=== PATIENT | female | born 1965 | race Caucasian/White ===

== ENCOUNTER 2016-07-20 13:50 | Emergency (ER) | payer BC ==
[2016-07-20 13:59] VITALS: RESP 18
[2016-07-20] MEDS ORDERED: IPRATROPIUM-ALBUTEROL 3 ML NEB INHALATION STA (14:41)
--- NOTE | 2016-07-20 14:46 | ED ---
General Adult HPI - General Chief complaint: Chest Pain Stated complaint: upper body pain/cough Time Seen by Provider: 07/20/16 14:31 Source: patient, RN notes reviewed, old records reviewed Mode of arrival: ambulatory Limitations: no limitations - History of Present Illness Initial comments: Chief complaint history of present illness this is a 51-year-old female reports she's had discomfort to the left side of her rib cage since March. The patient is here after a fall and x-ray was done and was negative she reports 4 days later she had another fall she thinks she may cracked ribs then but did not have any follow-up. This morning when she awakened she took a deep breath felt the crack in her sternum and recurrent pain to the left lateral chest wall. She also is a smoker with COPD requesting an updraft. Otherwise no direct injury. - Related Data Home Medications Medication Instructions Recorded Confirmed DULoxetine HCL [Cymbalta] 60 mg PO DAILY 07/20/16 07/20/16 Dextroamphetamine/Amphetamine 10 mg PO DAILY 07/20/16 07/20/16 [Adderall] Diazepam [Valium] 10 mg PO DAILY 07/20/16 07/20/16 Gabapentin 800 mg PO TID 07/20/16 07/20/16 Gluc/Hiro-MSM#1/C/Yasir/Chris/Bor 1 tab PO DAILY 07/20/16 07/20/16 [Glucosamine-Chondroitin Tablet] HYDROcodone/APAP 10-325MG [[place] 1 tab PO TID PRN 07/20/16 07/20/16 10-325] Pnv with Ca,No.72/Iron/FA 1 tab PO DAILY 07/20/16 07/20/16 [ Plus Tablet] Previous Rx's Medication Instructions Recorded Azithromycin [Zithromax Z-pack] 250 mg PO DIRECTED #6 tab 07/20/16 Hydrocodone/Acetaminophen [[place] 1 each PO Q6HR PRN #10 tab 07/20/16 5-325] Allergies Allergy/AdvReac Type Severity Reaction Status Date / Time NSAIDS (Non-Steroidal Allergy Unknown Verified 07/20/16 14:13 Anti-Inflamma Review of Systems ROS Statement: Those systems with pertinent positive or pertinent negative responses have been documented in the HPI. Review of systems. No visual acuity changes or headache she has chest discomfort to the anterior chest wall increases with palpation and breathing as well as lateral chest wall increases with palpation and breathing. States she also has a productive green brown phlegm. No GI/ problems no other neuro deficits or complaints. All systems were otherwise reviewed. Past medical problems significant for COPD, hypertension degenerative joint disease chronic back pain. Surgeries include cholecystectomy and partial hysterectomy and a bypass surgery for obesity. The patient's family history father had prostate cancer. Patient states that she needs to take nonsteroidals has taken with food. Patient is a smoker encouraged strongly encouraged to stop. Denies alcohol use other than socially on occasion. ROS Other: All systems not noted in ROS Statement are negative. Past Medical History Past Medical History: COPD, Hypertension Additional Past Medical History / Comment(s): DJD, chronic back pain History of Any Multi-Drug Resistant Organisms: None Reported Additional Past Surgical History / Comment(s): gallbladder, Gastric bypass, partial hysterectomy Past Psychological History: Anxiety, Depression Smoking Status: Current every day smoker Past Alcohol Use History: None Reported Past Drug Use History: None Reported General Exam - General Exam Comments Initial Comments: General: The patient is awake and alert, complains of short of breath and productive cough. Requesting an updraft. Complains of green-brown productive phlegm. Discomfort to the lateral chest wall in the sternal area. Increases with twisting turning deep breathing and coughing. Vital signs show temperature 99.0 pulse 91 respiratory rate 18 pulse ox 94% room air blood pressure 171 of 1: 15. This be rechecked with the patient is made more comfortable. Eye: Pupils are equal, round and reactive to light, extra-ocular movements are intact ; there is normal conjunctiva bilaterally. No signs of icterus. Ears, nose, mouth and throat: There are moist mucous membranes and no oral lesions. Patient is edentulous Neck: The neck is supple, there is no tenderness , no anterior cervical lymphadenopathy. No stiff neck. Cardiovascular: There is a regular rate and rhythm. No murmur, rub or gallop is appreciated. Respiratory: Lungs are clear to auscultation, respirations are non-labored, breath sounds are equal. No wheezes, stridor, rales, or rhonchi. No wheezing or rales. No evidence of any rash. Early shingles discussed. Complains discomfort with deep breathing and coughing. Gastrointestinal: Soft, non-distended, non-tender abdomen without masses or organomegaly noted. There is no rebound or guarding present. No CVA tenderness. Bowel sounds are unremarkable. Back: There is no tenderness to palpation in the midline. There is no obvious deformity. No rashes noted. Musculoskeletal: Normal ROM, no tenderness, There is no pedal edema. There is no calf tenderness or swelling. Sensation intact. Neurological: No evidence of a neuro deficits. Cranial nerves II through XII are intact. Skin: Skin is warm and dry and no rashes or lesions are noted. Early shingles discussed. Psychiatric: Cooperative, appropriate mood & affect, strongly advised to stop smoking. Limitations: no limitations Course Vital Signs 07/20/16 07/20/16 07/20/16 13:55 15:16 15:24 Temperature 99.0 F Pulse Rate 91 68 68 Respiratory 18 Rate Blood Pressure 171/115 O2 Sat by Pulse 94 L Oximetry Medical Decision Making - Medical Decision Making Medical decision-making. The patient had x-rays of the ribs and chest x-ray. Reviewed by radiologist significant findings include vertebral plasty changes are present on the prior exam at the upper lumbar spine with compression deformity. No displaced rib fractures. Old left-sided rib fracture appears healed at the fourth rib laterally. Fifth rib also shows a contour abnormality suggesting a chronic fracture. Bone mineralization is low which may limit sensitivity especially of the lower rib levels. Rib fractures noted at what is believed to be the ninth rib laterally. Impression; ninth rib fracture appears acute. May be subacute rib fractures. There are some limitations at the lower left levels, bone scan may be of benefit as indicated. As read by Dr. Nava Patient will be advised to splint the area of pain when she takes a deep breath or coughs. Advised to take her home pain medications of [place]. Advised follow- up with family physician to report fever. The patient will be placed on a Z- [place] because of the complaint of discolored phlegm. Disposition Clinical Impression: Rib fracture, Bronchitis Disposition: HOME SELF-CARE Condition: Fair Instructions: Costochondritis (ED), Rib Fracture (ED), COPD (Chronic Obstructive Pulmonary Disease) (ED), Chronic Bronchitis (ED) Additional Instructions: Use pain medication provided by her family physician stop smoking use updraft machine at home and Z-Tremaine as directed Prescriptions: Azithromycin [Zithromax Z-pack] 250 mg PO DIRECTED #6 tab Hydrocodone/Acetaminophen [[place] 5-325] 1 each PO Q6HR PRN #10 tab PRN Reason: Pain Time of Disposition: 15:59
[2016-07-20] MEDS ORDERED: oxyCODONE-APAP 5-325MG 1 EACH TAB PO STA (15:16)
--- NOTE | 2016-07-20 15:52 | XR ---
PA chest x-ray with left RIBS HISTORY: Left-sided rib pain, fall, cough Frontal view of the chest and 4 views of the left ribs correlated to prior chest x-ray and RIBS dated 11 March 2016 Chest x-ray shows stable appearance. There is no pneumonia, pneumothorax, or pleural effusion. Cardia c mediastinal silhouette, pulmonary vascularity and renny are stable. There is a spinal curvature. Oma gical clips present in the right upper quadrant. Vertebroplasty changes are present as on prior exam at the upper lumbar spine with compression deform ity. No displaced rib fracture. Old left-sided rib fracture appears healed at the fourth rib laterall y. Fifth rib also shows a contour abnormality suggesting a chronic fracture. Bone mineralization is l ow which may limit sensitivity especially at the lower rib levels. Rib fracture noted at what is believed to be the ninth rib laterally. IMPRESSION: Ninth rib fracture appears acute. There may be subacute rib fractures. There are some arenas itations at the lower levels, bone scan may be of benefit as indicated.
[2016-07-20] MEDS ORDERED: methylPREDNISolone SOD SUCCI 125 MG/2 ML VIAL IM STA (16:13)
[2016-07-20 16:17] VITALS: BP 167/102; PULSE 84; TEMP 98.1
[2016-07-20] MEDS ORDERED: ONDANSETRON 4 MG ODT STARTER PACK 2 TAB BTL PO STA (16:18)
== END 2016-07-20 16:26 | disposition home or self-care (01) ==
LOC: EC 13:50
DX: S22.32XA Fracture of one rib, left side, initial encounter for closed fracture (principal); J40 Bronchitis, not specified as acute or chronic; W19.XXXA Unspecified fall, initial encounter; J44.9 Chronic obstructive pulmonary disease, unspecified; F17.200 Nicotine dependence, unspecified, uncomplicated; M19.90 Unspecified osteoarthritis, unspecified site; F32.9 Major depressive disorder, single episode, unspecified; F41.9 Anxiety disorder, unspecified; Z79.899 Other long term (current) drug therapy; Z88.6 Allergy status to analgesic agent
CPT/HCPCS: 94640; 71101; 99285; 96372; J2930; S0119

== ENCOUNTER → 2016-07-20 | Outpatient (CLI) | payer BC ==
--- NOTE | 2016-07-20 15:58 | BD ---
EXAMINATION TYPE: MG DEXA axial skeleton. DATE OF EXAM: 07/20/2016 1:41 PM COMPARISON: 07.19.2002 CLINICAL HISTORY: M52.5 LUMBAGO Height: 64 Weight: 191 FRAX RISK QUESTIONS: Alcohol (3 or more units per day): NO Family History (Parent hip fracture): UNKNOWN Glucocorticoids (More than 3mos): YES (Ex: prednisone, prednisolone, methylprednisolone, dexamethasone, and hydrocortisone). History of Fracture in Adulthood: YES Secondary Osteoporosis: 1. Type 1 Diabetes: NO 2. Hyperthyroidism: NO 3. Menopause before 45: NO 4. Malnutrition: NOT SURE 5. Chronic liver disease: STATES NO Rheumatoid Arthritis: NO Current Tobacco Use: YES RISK FACTORS HISTORY OF: Spine Fracture: LUMBAR X3 SITES When: AT VARIOUS AGES History of Wrist Fracture: RT WRIST WITH SURGICAL REPAIR When: 2016 Surgery to Spine KYPHOPLASTY LUMBAR When: 2013 Other Fractures since Age 48: YES, RIBS ALSO When: 2016 Family History of Osteoporosis: NONE KNOWN Smoke tobacco: YES, 1 1/2 PAC DAILY Drink Alcohol: SOCIAL Active: NOT REALLY, CANNOT BE Diet low in dairy products/other sources of calcium: YES A BIT LOW, NO MILK Postmenopausal woman: PT STATES SAYS NOT IN MENOPAUSE YET, HAD HYSTERECTOMY IN HER 40'S, PORTION O F OVARY STILL THERE Lost more than 2 inches in height since high school: YES Frequent falls: PT VERY UNSTEADY Poor Health: YES Adrenal Insufficiency: NO MEDICATIONS: Prednisone or other steroids: NEBULIZER AND INHALERS FOR COPD How Long: FOR A WHILE Additional Medications: BP MEDS, CYMBALTA, VALIUM PRN,BENADRYL, NORCO, NSAIDS, ZANAFLEX, Additional History: GASTRIC BYPASS, MULTIPLE FXS, SUFFERS IN PAIN, MULTIPLE AREAS, DEPRESSION, SPONTA NIOUS HYPOGLYECMIA, EXAM MEASUREMENTS: Bone mineral densitometry was performed using the [employer] System. LUMBAR FRACTURES, AND SURG Bone mineral density about the R hip (g/cm2): 0.715 Bone mineral density about the L hip (g/cm2): 0.708 T Score values are as follows: -----R Neck: -2.3 -----L Neck: -2.4 -----R Intertrochanter: -3.2 -----L Intertrochanter: -2.9 Bone mineral density has: Decreased -23.2% since study of: 07.19.2002 FRAX%'S: FOR MAJOR OSTEOPOROTIC FX: 23.7%.....FOR HIP FX: 8.1% PROBABILITY OF FX IN 10 Y RS TIME IMPRESSION: Osteoporosis (T Score less than -2.5) as noted by T Score values at the There is increased fracture risk and therapy is usually indicated based on age. Re-Screen 1-2 years. FOR BOTH HIPS NOTE: T-SCORE=SD OF THE YOUNG ADULT MEAN.
== END | disposition home or self-care (01) ==
LOC: RADBDWWP 13:00
PROVIDERS: ATTEND Physician Assistant Medical
DX: M81.0 Age-related osteoporosis without current pathological fracture (principal)
CPT/HCPCS: 77080

== ENCOUNTER 2016-10-15 10:16 | Inpatient (IN) | payer BC ==
[2016-10-15] MEDS ORDERED: SODIUM CHLORIDE 0.9% 1,000 ML IV STA ×2 (10:27→10:32)
[2016-10-15] MEDS ORDERED: PANTOPRAZOLE 40 MG/10 ML VIAL IVP STA (10:29)
--- NOTE | 2016-10-15 10:45 | ED ---
Overdose HPI - General Stated Complaint: Overdose Time Seen by Provider: 10/15/16 10:16 Source: EMS, RN notes reviewed, old records reviewed Mode of arrival: EMS - History of Present Illness Initial Comments: Is a 51-year-old female with a history of narcotic abuse in the past who is brought in by EMS after being found unresponsive by her . She is lying on the floor just with her sure apparently the front door was cracked open. Patient was last seen able ably last evening. No reports of any trauma patient apparently does have access to morphine sulfate. History of back surgery and neurosurgery. Patient was found incontinent of urine and stool. She was given 2 mg of Narcan with some response. She is found lying on her left side is unknown how long she was here. No other physical signs of trauma. No other reported history available at this time. The patient was noted have a blood sugar in the 70s. MD Complaint: other - Related Data Home Medications Medication Instructions Recorded Confirmed Diazepam [Valium] 10 mg PO Q12H PRN 07/20/16 10/15/16 Gabapentin 800 mg PO TID 07/20/16 10/15/16 Pnv with Ca,No.72/Iron/FA 1 tab PO DAILY 07/20/16 10/15/16 [ Plus Tablet] Albuterol Sulfate [Proventil Hfa] 2 puff INHALATION RT-Q6H PRN 10/15/16 10/15/16 Dextroamphetamine/Amphetamine 20 mg PO QAM 10/15/16 10/15/16 [Adderall Xr] Metoprolol Tartrate [Lopressor] 100 mg PO BID 10/15/16 10/15/16 tiZANidine HCL [tiZANidine HCL] 4 mg PO TID 10/15/16 10/15/16 Allergies Allergy/AdvReac Type Severity Reaction Status Date / Time NSAIDS (Non-Steroidal Allergy Unknown Verified 07/20/16 14:13 Anti-Inflamma Review of Systems ROS Statement: Those systems with pertinent positive or pertinent negative responses have been documented in the HPI. ROS Other: All systems not noted in ROS Statement are negative. Limitations: ROS unobtainable due to patients medical condition Past Medical History Past Medical History: COPD, Hypertension Additional Past Medical History / Comment(s): DJD, chronic back pain History of Any Multi-Drug Resistant Organisms: None Reported Additional Past Surgical History / Comment(s): gallbladder, Gastric bypass, partial hysterectomy Past Psychological History: Anxiety, Depression Smoking Status: Current every day smoker Past Alcohol Use History: None Reported Past Drug Use History: None Reported General Exam - General Exam Comments Initial Comments: Is a well-developed well-nourished lethargic female General appearance: lethargic Head exam: Present: atraumatic, normocephalic, normal inspection Eye exam: Present: normal appearance, PERRL, EOMI. Absent: scleral icterus, conjunctival injection, periorbital swelling ENT exam: Present: mucous membranes dry Neck exam: Present: normal inspection. Absent: tenderness, meningismus, lymphadenopathy Respiratory exam: Present: decreased breath sounds. Absent: respiratory distress, wheezes, rales, rhonchi, stridor Cardiovascular Exam: Present: regular rate, normal rhythm, normal heart sounds. Absent: systolic murmur, diastolic murmur, rubs, gallop, clicks GI/Abdominal exam: Present: soft, normal bowel sounds. Absent: distended, tenderness, guarding, rebound, rigid Rectal exam: Present: heme (+) stool Speculum exam: Present: normal speculum exam Extremities exam: Present: full ROM, normal capillary refill, other (There is evidence of a stage I pressure sore on the left hip and pelvis area also the left shoulder.). Absent: tenderness, pedal edema, joint swelling, calf tenderness Back exam: Present: normal inspection Neurological exam: Present: alert, altered, CN II-XII intact Psychiatric exam: Present: flat affect Skin exam: Present: dry, intact, other (Cool to touch dusky). Absent: rash Course Vital Signs 10/15/16 10/15/16 10/15/16 10:30 11:00 12:34 Temperature 92.8 F L Pulse Rate 104 H 97 100 Respiratory 32 H 32 H 28 H Rate Blood Pressure 165/109 151/109 150/65 O2 Sat by Pulse 100 100 99 Oximetry 10/15/16 13:04 Temperature Pulse Rate 107 H Respiratory 28 H Rate Blood Pressure 140/81 O2 Sat by Pulse 98 Oximetry - Reevaluation(s) Reevaluation #1: 10/15/16 10:44 Stephens catheter was placed. Dark urine. Reevaluation #2: 10/15/16 13:50 I did repeat the rectal examination this time it is heme positive per lab. I did a long discussion with the patient's and relatives concerning the findings thus far patient does appear to be in regular lysis with jaundice and metabolic encephalopathy due to high ammonia level. Addition to GI bleeding. Patient will be admitted. Reevaluation #3: 10/15/16 15:05 The patient was noted to be more to Neck and did require intubation respiratory it was almost 60 breaths a minute. Reevaluation #4: 10/15/16 15:25 Patient's does state the patient was drinking up to a case of beer a day episode about a month ago. It is unclear whether she had any more alcohol since that time. He states she has an addictive personality and a thinnish he tries she seemed to get addicted to which includes medications. Procedures - Intubation Sedative: Propofol Mg Given: 140 Laryngoscope: Hamilton Size: 3 ET Tube Size: 7.5 ET Tube Uncuffed: No Tube Secured Depth (cm): 19 Tube Secured Location: lips Tube Placement Confirmation: visualized tube passing through cords, confirmation by capnometry Patient Tolerated Procedure: well Intubation Complications: none (ET tube did data be repositioned once) Medical Decision Making - Lab Data Result diagrams: 10/15/16 10:38 10/15/16 10:38 Lab Results 10/15/16 10/15/16 10/15/16 Range/Units 10:30 10:38 10:38 WBC 12.4 H (3.8-10.6) k/uL RBC 5.36 (3.80-5.40) m/uL Hgb 17.1 H (11.4-16.0) gm/dL Hct 53.2 H (34.0-46.0) % MCV 99.2 (80.0-100.0) fL MCH 31.8 (25.0-35.0) pg MCHC 32.1 (31.0-37.0) g/dL RDW 15.6 H (11.5-15.5) % Plt Count 128 L (150-450) k/uL Neutrophils % 86 % Lymphocytes % 3 % Monocytes % 9 % Eosinophils % 0 % Basophils % 1 % Neutrophils # 10.6 H (1.3-7.7) k/uL Lymphocytes # 0.3 L (1.0-4.8) k/uL Monocytes # 1.1 H (0-1.0) k/uL Eosinophils # 0.0 (0-0.7) k/uL Basophils # 0.1 (0-0.2) k/uL Macrocytosis Slight PT (9.0-12.0) sec INR (<1.1) APTT (22.0-30.0) sec Sodium (137-145) mmol/L Potassium (3.5-5.1) mmol/L Chloride (98-107) mmol/L Carbon Dioxide (22-30) mmol/L Anion Gap mmol/L BUN (7-17) mg/dL Creatinine (0.52-1.04) mg/dL Est GFR (MDRD) Af Amer (>60 ml/min/1.73 sqM) Est GFR (MDRD) Non-Af (>60 ml/min/1.73 sqM) Glucose (74-99) mg/dL Plasma Lactic Acid Bronson (0.7-2.0) mmol/L Calcium (8.4-10.2) mg/dL Magnesium (1.6-2.3) mg/dL Total Bilirubin (0.2-1.3) mg/dL AST (14-36) U/L ALT (9-52) U/L Alkaline Phosphatase (38-126) U/L Ammonia (<30) umol/L Total Creatine Kinase 4763 H (30-135) U/L CK-MB (CK-2) 30.8 H* (0.0-2.4) ng/mL CK-MB (CK-2) Rel Index Troponin I 0.037 H* (0.000-0.034) ng/mL Total Protein (6.3-8.2) g/dL Albumin (3.5-5.0) g/dL Amylase (30-110) U/L Lipase (23-300) U/L Urine Color Urine Appearance (Clear) Urine pH (5.0-8.0) Ur Specific Hassell (1.001-1.035) Urine Protein (Negative) Urine Glucose (UA) (Negative) Urine Ketones (Negative) Urine Blood (Negative) Urine Nitrite (Negative) Urine Bilirubin (Negative) Urine Urobilinogen (<2.0) mg/dL Ur Leukocyte Esterase (Negative) Ur Squamous Epith Cells (0-4) /hpf Urine Bacteria (None) /hpf Urine Mucus (None) /hpf Stool Occult Blood Negative (Negative) Urine Opiates Screen (NotDetected) Ur Oxycodone Screen (NotDetected) Urine Methadone Screen (NotDetected) Ur Propoxyphene Screen (NotDetected) Ur Barbiturates Screen (NotDetected) U Tricyclic Antidepress (NotDetected) Ur Phencyclidine Scrn (NotDetected) Ur Amphetamines Screen (NotDetected) U Methamphetamines Scrn (NotDetected) U Benzodiazepines Scrn (NotDetected) Urine Cocaine Screen (NotDetected) U Marijuana (THC) Screen (NotDetected) Serum Alcohol mg/dL Blood Type Blood Type Confirm Blood Type Recheck Antibody Screen Spec Expiration Date 10/15/16 10/15/16 10/15/16 Range/Units 10:38 10:38 10:38 WBC (3.8-10.6) k/uL RBC (3.80-5.40) m/uL Hgb (11.4-16.0) gm/dL Hct (34.0-46.0) % MCV (80.0-100.0) fL MCH (25.0-35.0) pg MCHC (31.0-37.0) g/dL RDW (11.5-15.5) % Plt Count (150-450) k/uL Neutrophils % % Lymphocytes % % Monocytes % % Eosinophils % % Basophils % % Neutrophils # (1.3-7.7) k/uL Lymphocytes # (1.0-4.8) k/uL Monocytes # (0-1.0) k/uL Eosinophils # (0-0.7) k/uL Basophils # (0-0.2) k/uL Macrocytosis PT 16.8 H (9.0-12.0) sec INR 1.7 (<1.1) APTT 26.5 (22.0-30.0) sec Sodium 139 (137-145) mmol/L Potassium 4.7 (3.5-5.1) mmol/L Chloride 103 (98-107) mmol/L Carbon Dioxide 12 L (22-30) mmol/L Anion Gap 24 mmol/L BUN 94 H* (7-17) mg/dL Creatinine 2.71 H (0.52-1.04) mg/dL Est GFR (MDRD) Af Amer 22 (>60 ml/min/1.73 sqM) Est GFR (MDRD) Non-Af 18 (>60 ml/min/1.73 sqM) Glucose 174 H (74-99) mg/dL Plasma Lactic Acid Bronson 10.8 H* (0.7-2.0) mmol/L Calcium 8.6 (8.4-10.2) mg/dL Magnesium 3.2 H (1.6-2.3) mg/dL Total Bilirubin 3.5 H (0.2-1.3) mg/dL AST 1412 H (14-36) U/L ALT 483 H (9-52) U/L Alkaline Phosphatase 176 H (38-126) U/L Ammonia 158 H (<30) umol/L Total Creatine Kinase (30-135) U/L CK-MB (CK-2) (0.0-2.4) ng/mL CK-MB (CK-2) Rel Index Troponin I (0.000-0.034) ng/mL Total Protein 5.2 L (6.3-8.2) g/dL Albumin 2.3 L (3.5-5.0) g/dL Amylase 150 H (30-110) U/L Lipase 224 (23-300) U/L Urine Color Urine Appearance (Clear) Urine pH (5.0-8.0) Ur Specific Hassell (1.001-1.035) Urine Protein (Negative) Urine Glucose (UA) (Negative) Urine Ketones (Negative) Urine Blood (Negative) Urine Nitrite (Negative) Urine Bilirubin (Negative) Urine Urobilinogen (<2.0) mg/dL Ur Leukocyte Esterase (Negative) Ur Squamous Epith Cells (0-4) /hpf Urine Bacteria (None) /hpf Urine Mucus (None) /hpf Stool Occult Blood (Negative) Urine Opiates Screen (NotDetected) Ur Oxycodone Screen (NotDetected) Urine Methadone Screen (NotDetected) Ur Propoxyphene Screen (NotDetected) Ur Barbiturates Screen (NotDetected) U Tricyclic Antidepress (NotDetected) Ur Phencyclidine Scrn (NotDetected) Ur Amphetamines Screen (NotDetected) U Methamphetamines Scrn (NotDetected) U Benzodiazepines Scrn (NotDetected) Urine Cocaine Screen (NotDetected) U Marijuana (THC) Screen (NotDetected) Serum Alcohol <10 mg/dL Blood Type Blood Type Confirm Blood Type Recheck Antibody Screen Spec Expiration Date 10/15/16 10/15/16 10/15/16 Range/Units 10:38 10:47 11:37 WBC (3.8-10.6) k/uL RBC (3.80-5.40) m/uL Hgb (11.4-16.0) gm/dL Hct (34.0-46.0) % MCV (80.0-100.0) fL MCH (25.0-35.0) pg MCHC (31.0-37.0) g/dL RDW (11.5-15.5) % Plt Count (150-450) k/uL Neutrophils % % Lymphocytes % % Monocytes % % Eosinophils % % Basophils % % Neutrophils # (1.3-7.7) k/uL Lymphocytes # (1.0-4.8) k/uL Monocytes # (0-1.0) k/uL Eosinophils # (0-0.7) k/uL Basophils # (0-0.2) k/uL Macrocytosis PT (9.0-12.0) sec INR (<1.1) APTT (22.0-30.0) sec Sodium (137-145) mmol/L Potassium (3.5-5.1) mmol/L Chloride (98-107) mmol/L Carbon Dioxide (22-30) mmol/L Anion Gap mmol/L BUN (7-17) mg/dL Creatinine (0.52-1.04) mg/dL Est GFR (MDRD) Af Amer (>60 ml/min/1.73 sqM) Est GFR (MDRD) Non-Af (>60 ml/min/1.73 sqM) Glucose (74-99) mg/dL Plasma Lactic Acid Bronson (0.7-2.0) mmol/L Calcium (8.4-10.2) mg/dL Magnesium (1.6-2.3) mg/dL Total Bilirubin (0.2-1.3) mg/dL AST (14-36) U/L ALT (9-52) U/L Alkaline Phosphatase (38-126) U/L Ammonia (<30) umol/L Total Creatine Kinase (30-135) U/L CK-MB (CK-2) (0.0-2.4) ng/mL CK-MB (CK-2) Rel Index Troponin I (0.000-0.034) ng/mL Total Protein (6.3-8.2) g/dL Albumin (3.5-5.0) g/dL Amylase (30-110) U/L Lipase (23-300) U/L Urine Color Dark Brown Urine Appearance Cloudy H (Clear) Urine pH 5.5 (5.0-8.0) Ur Specific Hassell 1.015 (1.001-1.035) Urine Protein 1+ H (Negative) Urine Glucose (UA) Negative (Negative) Urine Ketones Negative (Negative) Urine Blood Small H (Negative) Urine Nitrite Negative (Negative) Urine Bilirubin Negative (Negative) Urine Urobilinogen 4.0 (<2.0) mg/dL Ur Leukocyte Esterase Small H (Negative) Ur Squamous Epith Cells 2 (0-4) /hpf Urine Bacteria Many H (None) /hpf Urine Mucus Few H (None) /hpf Stool Occult Blood Positive H (Negative) Urine Opiates Screen Detected H (NotDetected) Ur Oxycodone Screen Detected H (NotDetected) Urine Methadone Screen Not Detected (NotDetected) Ur Propoxyphene Screen Not Detected (NotDetected) Ur Barbiturates Screen Detected H (NotDetected) U Tricyclic Antidepress Not Detected (NotDetected) Ur Phencyclidine Scrn Not Detected (NotDetected) Ur Amphetamines Screen Detected H (NotDetected) U Methamphetamines Scrn Not Detected (NotDetected) U Benzodiazepines Scrn Detected H (NotDetected) Urine Cocaine Screen Not Detected (NotDetected) U Marijuana (THC) Screen Not Detected (NotDetected) Serum Alcohol mg/dL Blood Type A Positive Blood Type Confirm Blood Type Recheck CABO Indicated Antibody Screen NEGATIVE Spec Expiration Date 10/18/2016 - 233710/15/16 10/15/16 10/15/16 Range/Units 14:14 14:14 14:32 WBC (3.8-10.6) k/uL RBC (3.80-5.40) m/uL Hgb (11.4-16.0) gm/dL Hct (34.0-46.0) % MCV (80.0-100.0) fL MCH (25.0-35.0) pg MCHC (31.0-37.0) g/dL RDW (11.5-15.5) % Plt Count (150-450) k/uL Neutrophils % % Lymphocytes % % Monocytes % % Eosinophils % % Basophils % % Neutrophils # (1.3-7.7) k/uL Lymphocytes # (1.0-4.8) k/uL Monocytes # (0-1.0) k/uL Eosinophils # (0-0.7) k/uL Basophils # (0-0.2) k/uL Macrocytosis PT 17.2 H (9.0-12.0) sec INR 1.8 (<1.1) APTT 28.8 (22.0-30.0) sec Sodium (137-145) mmol/L Potassium (3.5-5.1) mmol/L Chloride (98-107) mmol/L Carbon Dioxide (22-30) mmol/L Anion Gap mmol/L BUN (7-17) mg/dL Creatinine (0.52-1.04) mg/dL Est GFR (MDRD) Af Amer (>60 ml/min/1.73 sqM) Est GFR (MDRD) Non-Af (>60 ml/min/1.73 sqM) Glucose (74-99) mg/dL Plasma Lactic Acid Bronson 5.1 H* (0.7-2.0) mmol/L Calcium (8.4-10.2) mg/dL Magnesium (1.6-2.3) mg/dL Total Bilirubin (0.2-1.3) mg/dL AST (14-36) U/L ALT (9-52) U/L Alkaline Phosphatase (38-126) U/L Ammonia (<30) umol/L Total Creatine Kinase (30-135) U/L CK-MB (CK-2) (0.0-2.4) ng/mL CK-MB (CK-2) Rel Index Troponin I (0.000-0.034) ng/mL Total Protein (6.3-8.2) g/dL Albumin (3.5-5.0) g/dL Amylase (30-110) U/L Lipase (23-300) U/L Urine Color Urine Appearance (Clear) Urine pH (5.0-8.0) Ur Specific Hassell (1.001-1.035) Urine Protein (Negative) Urine Glucose (UA) (Negative) Urine Ketones (Negative) Urine Blood (Negative) Urine Nitrite (Negative) Urine Bilirubin (Negative) Urine Urobilinogen (<2.0) mg/dL Ur Leukocyte Esterase (Negative) Ur Squamous Epith Cells (0-4) /hpf Urine Bacteria (None) /hpf Urine Mucus (None) /hpf Stool Occult Blood (Negative) Urine Opiates Screen (NotDetected) Ur Oxycodone Screen (NotDetected) Urine Methadone Screen (NotDetected) Ur Propoxyphene Screen (NotDetected) Ur Barbiturates Screen (NotDetected) U Tricyclic Antidepress (NotDetected) Ur Phencyclidine Scrn (NotDetected) Ur Amphetamines Screen (NotDetected) U Methamphetamines Scrn (NotDetected) U Benzodiazepines Scrn (NotDetected) Urine Cocaine Screen (NotDetected) U Marijuana (THC) Screen (NotDetected) Serum Alcohol mg/dL Blood Type Blood Type Confirm A Positive Blood Type Recheck Antibody Screen Spec Expiration Date - EKG Data -: EKG Interpreted by [place] EKG shows normal: sinus rhythm (Sinus tachycardia rate 103 ND interval 144 QRS duration 88 QT/QTC 370/495 possible left atrial enlargement nonspecific ST-T wave configuration.) - Radiology Data Radiology results: report reviewed (I did review the imaging and reports no acute findings patient did have to be x-rayed after intubation the initial x- ray showed right mainstem intubation after the ET tube was withdrawn it was in good position. CAT scans are negative for acute processes), image reviewed Critical Care Time Critical Care Time: Yes Critical Care Time: 65 minutes of critical care time which includes initial monitoring of the EMS run and discussed with paramedics history physical lab and x-rays evaluation CAT scans of the patient multiple reevaluation of the patient multiple discussions with the patient's and family members. This is not included intubation time. Discussion with the admitting physician. Documentation the above admission orders. Disposition Clinical Impression: Acute respiratory failure, Hepatic encephalopathy, GI bleed, Rhabdomyolysis, Sepsis, Drug overdose, Dehydration, Lactic acidosis Disposition: ADMITTED IP TO THIS HOSP Condition: Critical Referrals: Olga Cat MD [Primary Care Provider] - 1-2 days
[2016-10-15 11:10] LABS: ALT 483 U/L (9-52); Alcohol <10 mg/dL; Alkaline Phosphatase 176 U/L (38-126); Amylase 150 U/L (30-110); Anion Gap 24 mmol/L; Calcium 8.6 mg/dL (8.4-10.2); Carbon Dioxide 12 mmol/L (22-30); Chloride 103 mmol/L (98-107); Glucose 174 mg/dL (74-99); Magnesium 3.2 mg/dL (1.6-2.3); Potassium 4.7 mmol/L (3.5-5.1); Sodium 139 mmol/L (137-145); Total Bilirubin 3.5 mg/dL (0.2-1.3); Total Protein 5.2 g/dL (6.3-8.2)
[2016-10-15 11:14] LABS: INR 1.7 (<1.1); Partial Thromboplastin Time 26.5 sec (22.0-30.0); Prothrombin Time 16.8 sec (9.0-12.0)
[2016-10-15 11:19] LABS: Appearance,Urine Cloudy (Clear); Bacteria,Urine Many /hpf; Bilirubin,Urine Negative (Negative); Glucose,Urine (UA) Negative (Negative); Ketones,Urine Negative (Negative); Leukocyte Esterase,Urine Small (Negative); Mucus,Urine Few /hpf; Nitrite,Urine Negative (Negative); PH, Urine 5.5 (5.0-8.0); Particle Count 82274; Protein,Urine 1+ (Negative); Specific Gravity,Urine 1.015 (1.001-1.035); Squamous Epithelial Cell,Urine 2 /hpf (0-4); UA Billing (MACRO vs. MICRO) MICRO
[2016-10-15] MEDS ORDERED: SODIUM CHLORIDE 0.9% 2,000 ML IV ONE ×2 (11:23→13:36)
--- NOTE | 2016-10-15 11:25 | XR ---
EXAMINATION TYPE: XR chest 1V portable DATE OF EXAM: 10/15/2016 11:21 AM COMPARISON: 07/20/2016 HISTORY: Altered mental status TECHNIQUE: Single frontal view of the chest is obtained. FINDINGS: There is no focal air space opacity, pleural effusion, or pneumothorax seen. The cardiac silhouette size is within normal limits. The osseous structures are intact. Linear change right upp er lobe most typical scar or atelectasis. Rib deformities noted by previous rib series not as well se en on today's exam. IMPRESSION: No acute process.
[2016-10-15 11:27] LABS: Basophils # (A) 0.1 k/uL (0-0.2); Basophils % (A) 1 %; CH 32.6; CHCM 33.1; Eosinophils % (A) 0 %; HCT 53.2 % (34.0-46.0); HDW 2.51; HGB 17.1 gm/dL (11.4-16.0); Immature Gran Flag Marked; Luc # (Auto) 0.21; Luc % (Auto) 2; Lymphocytes # (A) 0.3 k/uL (1.0-4.8); Lymphocytes % (A) 3 %; MCH 31.8 pg (25.0-35.0); MCHC 32.1 g/dL (31.0-37.0); MCV 99.2 fL (80.0-100.0); Macrocytosis Slight; Mean Platelet Volume 10.1; Monocytes # (A) 1.1 k/uL (0-1.0); Monocytes % (A) 9 %; Neutrophils # (A) 10.6 k/uL (1.3-7.7); Neutrophils % (A) 86 %; RBC 5.36 m/uL (3.80-5.40); RDW 15.6 % (11.5-15.5); WBC 12.4 k/uL (3.8-10.6); WBC (Perox) 12.18
[2016-10-15 11:39] LABS: Blood Urea Nitrogen 94 mg/dL (7-17)
[2016-10-15 11:43] LABS: Creatine Kinase MB 30.8 ng/mL (0.0-2.4); Troponin I 0.037 ng/mL (0.000-0.034)
[2016-10-15 11:56] LABS: AST 1412 U/L (14-36); Non-African American GFR(MDRD) 18 (>60 ml/min/1.73 sqM)
--- NOTE | 2016-10-15 12:28 | CT ---
EXAMINATION TYPE: CT brain wo con DATE OF EXAM: 10/15/2016 12:23 PM COMPARISON: 11/19/2011 INDICATION: Patient unresponsive at time of exam. DLP: 1115 mGycm, Automated exposure control for dose reduction was used. CONTRAST: None CT of the brain is performed utilizing 3 mm thick sections through the posterior fossa and 3 mm thick sections through the remaining calvarium. Study is performed within 24 hours of arrival to the hosp [facility]. No abnormal hyperdensity is present to suggest an acute intracranial hemorrhage. No mass lesion is evident. No acute infarcts are evident. No significant change in the voss-white matter interface or white jonathan er appearance. Ventricles and sulci are appropriate for the patient age. There is an air-fluid level within the right frontal sinus. Correlate for right frontal sinusitis. Re maining paranasal sinuses and mastoid air cells are clear. IMPRESSIONS: 1. No acute intracranial process.
[2016-10-15] MEDS: SODIUM CHLORIDE 0.9% 1,000 ML IV STA ×2 (13:31→15:36)
[2016-10-15] MEDS ORDERED: PROPOFOL 10 MG/ML 20 ML VIAL IV STA (14:48)
[2016-10-15 14:50] LABS: INR 1.8 (<1.1); Partial Thromboplastin Time 28.8 sec (22.0-30.0); Prothrombin Time 17.2 sec (9.0-12.0)
[2016-10-15] MEDS: PROPOFOL 500 MG in EMPTY BAG 1 BAG IV ONE ×2 (14:55→18:46)
[2016-10-15] MEDS ORDERED: PROPOFOL 10 MG/ML 50 ML VIAL IV STA (14:56)
[2016-10-15] MEDS ORDERED: LACTULOSE 20 GM/30 ML CUP PO ONE (15:30)
[2016-10-15] MEDS: SODIUM BICARB 8.4% 50 ML SYR (1 MEQ/ML) IV STA ×2 (15:33→21:46)
--- NOTE | 2016-10-15 15:48 | ED ---
Medical Decision Making - Lab Data Result diagrams: 10/15/16 10:38 10/15/16 10:38 Lab Results 10/15/16 10/15/16 10/15/16 Range/Units 10:30 10:38 10:38 WBC 12.4 H (3.8-10.6) k/uL RBC 5.36 (3.80-5.40) m/uL Hgb 17.1 H (11.4-16.0) gm/dL Hct 53.2 H (34.0-46.0) % MCV 99.2 (80.0-100.0) fL MCH 31.8 (25.0-35.0) pg MCHC 32.1 (31.0-37.0) g/dL RDW 15.6 H (11.5-15.5) % Plt Count 128 L (150-450) k/uL Neutrophils % 86 % Lymphocytes % 3 % Monocytes % 9 % Eosinophils % 0 % Basophils % 1 % Neutrophils # 10.6 H (1.3-7.7) k/uL Lymphocytes # 0.3 L (1.0-4.8) k/uL Monocytes # 1.1 H (0-1.0) k/uL Eosinophils # 0.0 (0-0.7) k/uL Basophils # 0.1 (0-0.2) k/uL Macrocytosis Slight PT (9.0-12.0) sec INR (<1.1) APTT (22.0-30.0) sec Sodium (137-145) mmol/L Potassium (3.5-5.1) mmol/L Chloride (98-107) mmol/L Carbon Dioxide (22-30) mmol/L Anion Gap mmol/L BUN (7-17) mg/dL Creatinine (0.52-1.04) mg/dL Est GFR (MDRD) Af Amer (>60 ml/min/1.73 sqM) Est GFR (MDRD) Non-Af (>60 ml/min/1.73 sqM) Glucose (74-99) mg/dL Plasma Lactic Acid Bronson (0.7-2.0) mmol/L Calcium (8.4-10.2) mg/dL Magnesium (1.6-2.3) mg/dL Total Bilirubin (0.2-1.3) mg/dL AST (14-36) U/L ALT (9-52) U/L Alkaline Phosphatase (38-126) U/L Ammonia (<30) umol/L Total Creatine Kinase 4763 H (30-135) U/L CK-MB (CK-2) 30.8 H* (0.0-2.4) ng/mL CK-MB (CK-2) Rel Index Troponin I 0.037 H* (0.000-0.034) ng/mL Total Protein (6.3-8.2) g/dL Albumin (3.5-5.0) g/dL Amylase (30-110) U/L Lipase (23-300) U/L Urine Color Urine Appearance (Clear) Urine pH (5.0-8.0) Ur Specific Winston (1.001-1.035) Urine Protein (Negative) Urine Glucose (UA) (Negative) Urine Ketones (Negative) Urine Blood (Negative) Urine Nitrite (Negative) Urine Bilirubin (Negative) Urine Urobilinogen (<2.0) mg/dL Ur Leukocyte Esterase (Negative) Ur Squamous Epith Cells (0-4) /hpf Urine Bacteria (None) /hpf Urine Mucus (None) /hpf Stool Occult Blood Negative (Negative) Urine Opiates Screen (NotDetected) Ur Oxycodone Screen (NotDetected) Urine Methadone Screen (NotDetected) Ur Propoxyphene Screen (NotDetected) Ur Barbiturates Screen (NotDetected) U Tricyclic Antidepress (NotDetected) Ur Phencyclidine Scrn (NotDetected) Ur Amphetamines Screen (NotDetected) U Methamphetamines Scrn (NotDetected) U Benzodiazepines Scrn (NotDetected) Urine Cocaine Screen (NotDetected) U Marijuana (THC) Screen (NotDetected) Serum Alcohol mg/dL Blood Type Blood Type Confirm Blood Type Recheck Antibody Screen Spec Expiration Date 10/15/16 10/15/16 10/15/16 Range/Units 10:38 10:38 10:38 WBC (3.8-10.6) k/uL RBC (3.80-5.40) m/uL Hgb (11.4-16.0) gm/dL Hct (34.0-46.0) % MCV (80.0-100.0) fL MCH (25.0-35.0) pg MCHC (31.0-37.0) g/dL RDW (11.5-15.5) % Plt Count (150-450) k/uL Neutrophils % % Lymphocytes % % Monocytes % % Eosinophils % % Basophils % % Neutrophils # (1.3-7.7) k/uL Lymphocytes # (1.0-4.8) k/uL Monocytes # (0-1.0) k/uL Eosinophils # (0-0.7) k/uL Basophils # (0-0.2) k/uL Macrocytosis PT 16.8 H (9.0-12.0) sec INR 1.7 (<1.1) APTT 26.5 (22.0-30.0) sec Sodium 139 (137-145) mmol/L Potassium 4.7 (3.5-5.1) mmol/L Chloride 103 (98-107) mmol/L Carbon Dioxide 12 L (22-30) mmol/L Anion Gap 24 mmol/L BUN 94 H* (7-17) mg/dL Creatinine 2.71 H (0.52-1.04) mg/dL Est GFR (MDRD) Af Amer 22 (>60 ml/min/1.73 sqM) Est GFR (MDRD) Non-Af 18 (>60 ml/min/1.73 sqM) Glucose 174 H (74-99) mg/dL Plasma Lactic Acid Bronson 10.8 H* (0.7-2.0) mmol/L Calcium 8.6 (8.4-10.2) mg/dL Magnesium 3.2 H (1.6-2.3) mg/dL Total Bilirubin 3.5 H (0.2-1.3) mg/dL AST 1412 H (14-36) U/L ALT 483 H (9-52) U/L Alkaline Phosphatase 176 H (38-126) U/L Ammonia 158 H (<30) umol/L Total Creatine Kinase (30-135) U/L CK-MB (CK-2) (0.0-2.4) ng/mL CK-MB (CK-2) Rel Index Troponin I (0.000-0.034) ng/mL Total Protein 5.2 L (6.3-8.2) g/dL Albumin 2.3 L (3.5-5.0) g/dL Amylase 150 H (30-110) U/L Lipase 224 (23-300) U/L Urine Color Urine Appearance (Clear) Urine pH (5.0-8.0) Ur Specific Winston (1.001-1.035) Urine Protein (Negative) Urine Glucose (UA) (Negative) Urine Ketones (Negative) Urine Blood (Negative) Urine Nitrite (Negative) Urine Bilirubin (Negative) Urine Urobilinogen (<2.0) mg/dL Ur Leukocyte Esterase (Negative) Ur Squamous Epith Cells (0-4) /hpf Urine Bacteria (None) /hpf Urine Mucus (None) /hpf Stool Occult Blood (Negative) Urine Opiates Screen (NotDetected) Ur Oxycodone Screen (NotDetected) Urine Methadone Screen (NotDetected) Ur Propoxyphene Screen (NotDetected) Ur Barbiturates Screen (NotDetected) U Tricyclic Antidepress (NotDetected) Ur Phencyclidine Scrn (NotDetected) Ur Amphetamines Screen (NotDetected) U Methamphetamines Scrn (NotDetected) U Benzodiazepines Scrn (NotDetected) Urine Cocaine Screen (NotDetected) U Marijuana (THC) Screen (NotDetected) Serum Alcohol <10 mg/dL Blood Type Blood Type Confirm Blood Type Recheck Antibody Screen Spec Expiration Date 10/15/16 10/15/16 10/15/16 Range/Units 10:38 10:47 11:37 WBC (3.8-10.6) k/uL RBC (3.80-5.40) m/uL Hgb (11.4-16.0) gm/dL Hct (34.0-46.0) % MCV (80.0-100.0) fL MCH (25.0-35.0) pg MCHC (31.0-37.0) g/dL RDW (11.5-15.5) % Plt Count (150-450) k/uL Neutrophils % % Lymphocytes % % Monocytes % % Eosinophils % % Basophils % % Neutrophils # (1.3-7.7) k/uL Lymphocytes # (1.0-4.8) k/uL Monocytes # (0-1.0) k/uL Eosinophils # (0-0.7) k/uL Basophils # (0-0.2) k/uL Macrocytosis PT (9.0-12.0) sec INR (<1.1) APTT (22.0-30.0) sec Sodium (137-145) mmol/L Potassium (3.5-5.1) mmol/L Chloride (98-107) mmol/L Carbon Dioxide (22-30) mmol/L Anion Gap mmol/L BUN (7-17) mg/dL Creatinine (0.52-1.04) mg/dL Est GFR (MDRD) Af Amer (>60 ml/min/1.73 sqM) Est GFR (MDRD) Non-Af (>60 ml/min/1.73 sqM) Glucose (74-99) mg/dL Plasma Lactic Acid Bronson (0.7-2.0) mmol/L Calcium (8.4-10.2) mg/dL Magnesium (1.6-2.3) mg/dL Total Bilirubin (0.2-1.3) mg/dL AST (14-36) U/L ALT (9-52) U/L Alkaline Phosphatase (38-126) U/L Ammonia (<30) umol/L Total Creatine Kinase (30-135) U/L CK-MB (CK-2) (0.0-2.4) ng/mL CK-MB (CK-2) Rel Index Troponin I (0.000-0.034) ng/mL Total Protein (6.3-8.2) g/dL Albumin (3.5-5.0) g/dL Amylase (30-110) U/L Lipase (23-300) U/L Urine Color Dark Brown Urine Appearance Cloudy H (Clear) Urine pH 5.5 (5.0-8.0) Ur Specific Winston 1.015 (1.001-1.035) Urine Protein 1+ H (Negative) Urine Glucose (UA) Negative (Negative) Urine Ketones Negative (Negative) Urine Blood Small H (Negative) Urine Nitrite Negative (Negative) Urine Bilirubin Negative (Negative) Urine Urobilinogen 4.0 (<2.0) mg/dL Ur Leukocyte Esterase Small H (Negative) Ur Squamous Epith Cells 2 (0-4) /hpf Urine Bacteria Many H (None) /hpf Urine Mucus Few H (None) /hpf Stool Occult Blood Positive H (Negative) Urine Opiates Screen Detected H (NotDetected) Ur Oxycodone Screen Detected H (NotDetected) Urine Methadone Screen Not Detected (NotDetected) Ur Propoxyphene Screen Not Detected (NotDetected) Ur Barbiturates Screen Detected H (NotDetected) U Tricyclic Antidepress Not Detected (NotDetected) Ur Phencyclidine Scrn Not Detected (NotDetected) Ur Amphetamines Screen Detected H (NotDetected) U Methamphetamines Scrn Not Detected (NotDetected) U Benzodiazepines Scrn Detected H (NotDetected) Urine Cocaine Screen Not Detected (NotDetected) U Marijuana (THC) Screen Not Detected (NotDetected) Serum Alcohol mg/dL Blood Type A Positive Blood Type Confirm Blood Type Recheck CABO Indicated Antibody Screen NEGATIVE Spec Expiration Date 10/18/2016 - 233710/15/16 10/15/16 10/15/16 Range/Units 14:14 14:14 14:32 WBC (3.8-10.6) k/uL RBC (3.80-5.40) m/uL Hgb (11.4-16.0) gm/dL Hct (34.0-46.0) % MCV (80.0-100.0) fL MCH (25.0-35.0) pg MCHC (31.0-37.0) g/dL RDW (11.5-15.5) % Plt Count (150-450) k/uL Neutrophils % % Lymphocytes % % Monocytes % % Eosinophils % % Basophils % % Neutrophils # (1.3-7.7) k/uL Lymphocytes # (1.0-4.8) k/uL Monocytes # (0-1.0) k/uL Eosinophils # (0-0.7) k/uL Basophils # (0-0.2) k/uL Macrocytosis PT 17.2 H (9.0-12.0) sec INR 1.8 (<1.1) APTT 28.8 (22.0-30.0) sec Sodium (137-145) mmol/L Potassium (3.5-5.1) mmol/L Chloride (98-107) mmol/L Carbon Dioxide (22-30) mmol/L Anion Gap mmol/L BUN (7-17) mg/dL Creatinine (0.52-1.04) mg/dL Est GFR (MDRD) Af Amer (>60 ml/min/1.73 sqM) Est GFR (MDRD) Non-Af (>60 ml/min/1.73 sqM) Glucose (74-99) mg/dL Plasma Lactic Acid Bronson 5.1 H* (0.7-2.0) mmol/L Calcium (8.4-10.2) mg/dL Magnesium (1.6-2.3) mg/dL Total Bilirubin (0.2-1.3) mg/dL AST (14-36) U/L ALT (9-52) U/L Alkaline Phosphatase (38-126) U/L Ammonia (<30) umol/L Total Creatine Kinase (30-135) U/L CK-MB (CK-2) (0.0-2.4) ng/mL CK-MB (CK-2) Rel Index Troponin I (0.000-0.034) ng/mL Total Protein (6.3-8.2) g/dL Albumin (3.5-5.0) g/dL Amylase (30-110) U/L Lipase (23-300) U/L Urine Color Urine Appearance (Clear) Urine pH (5.0-8.0) Ur Specific Winston (1.001-1.035) Urine Protein (Negative) Urine Glucose (UA) (Negative) Urine Ketones (Negative) Urine Blood (Negative) Urine Nitrite (Negative) Urine Bilirubin (Negative) Urine Urobilinogen (<2.0) mg/dL Ur Leukocyte Esterase (Negative) Ur Squamous Epith Cells (0-4) /hpf Urine Bacteria (None) /hpf Urine Mucus (None) /hpf Stool Occult Blood (Negative) Urine Opiates Screen (NotDetected) Ur Oxycodone Screen (NotDetected) Urine Methadone Screen (NotDetected) Ur Propoxyphene Screen (NotDetected) Ur Barbiturates Screen (NotDetected) U Tricyclic Antidepress (NotDetected) Ur Phencyclidine Scrn (NotDetected) Ur Amphetamines Screen (NotDetected) U Methamphetamines Scrn (NotDetected) U Benzodiazepines Scrn (NotDetected) Urine Cocaine Screen (NotDetected) U Marijuana (THC) Screen (NotDetected) Serum Alcohol mg/dL Blood Type Blood Type Confirm A Positive Blood Type Recheck Antibody Screen Spec Expiration Date Disposition Clinical Impression: Acute respiratory failure, Hepatic encephalopathy, GI bleed, Rhabdomyolysis, Sepsis, Drug overdose, Dehydration, Lactic acidosis Disposition: ADMITTED IP TO THIS [facility] Condition: Critical Referrals: Olga Cat MD [Primary Care Provider] - 1-2 days Decision Time: 10:30
[2016-10-15 16:00] LABS: ABG HCO3 16 mmol/L (21-25); ABG PCO2 25 mmHg (35-45); ABG PH 7.43 (7.35-7.45); ABG PO2 232 mmHg (83-108); ABG TCO2 17 mmol/L (19-24)
[2016-10-15 16:01] LABS: ABG Base Excess -7.7 mmol/L
--- NOTE | 2016-10-15 16:04 | XR ---
EXAMINATION TYPE: XR chest 1V portable DATE OF EXAM: 10/15/2016 3:10 PM COMPARISON: 10/15/2016 HISTORY: Post intubation TECHNIQUE: Single frontal view of the chest is obtained. FINDINGS: ET tube approximately 2.8 cm above karissa. There is a diffuse interstitial pattern. No ple ural effusion. No pneumothorax. Linear change right upper lobe most typical scar or atelectasis. Arth ropathy of the shoulders. IMPRESSION: 1. ET tube approximately 2.8 cm above karissa. 2. Interstitial pattern can be seen with chronic interstitial fibrosis. Chronic congestion or pneumon itis also in the differential diagnosis.
[2016-10-15] MEDS: SODIUM CHLORIDE 0.45% 1,000 ML IV SCH (16:09)
[2016-10-15] MEDS ORDERED: PIPERACILLIN-TAZOBACTAM 3.375 GM in DEXTROSE/WATER 1 50ML.BAG IVPB SCH (16:30)
--- NOTE | 2016-10-15 17:18 | P.HPIM ---
History of Present Illness H&P Date: 10/15/16 51-year-old female who was last seen normal at 4 PM on 10/15/1999 something is going to the hospital by her due to nonresponsiveness. Patient was unresponsive was not able to protect her airway hence was intubated by the emergency physician. Initial labs indicated a borderline anion gap metabolic acidosis. with multiple substances in her blood. Patient was also noted to have elevated CK. Renal function is also impaired patient's baseline creatinine is around 0.4 0.6. At the time of my evaluation patient is intubated currently at 15 mics of propofol. Most of the history is obtained from chart review and the patient's . Patient apparently has had a long history of substance abuse over a week ago was complaining of some suicidal ideation. Apparently has been incarcerated due to substance abuse problem however has been obtaining multiple medications via her NA friends. Review of Systems ROS unobtainable: due to mental status Past Medical History Past Medical History: COPD, Hypertension Additional Past Medical History / Comment(s): DJD, chronic back pain History of Any Multi-Drug Resistant Organisms: None Reported Additional Past Surgical History / Comment(s): gallbladder, Gastric bypass, partial hysterectomy Past Psychological History: Anxiety, Depression Smoking Status: Current every day smoker Past Alcohol Use History: None Reported Past Drug Use History: None Reported Medications and Allergies Home Medications Medication Instructions Recorded Confirmed Type Diazepam [Valium] 10 mg PO Q12H PRN 07/20/16 10/15/16 History Gabapentin 800 mg PO TID 07/20/16 10/15/16 History Pnv with Ca,No.72/Iron/FA 1 tab PO DAILY 07/20/16 10/15/16 History [ Plus Tablet] Albuterol Sulfate [Proventil Hfa] 2 puff INHALATION RT-Q6H PRN 10/15/16 History Dextroamphetamine/Amphetamine 20 mg PO QAM 10/15/16 10/15/16 History [Adderall Xr] Metoprolol Tartrate [Lopressor] 100 mg PO BID 10/15/16 10/15/16 History tiZANidine HCL [tiZANidine HCL] 4 mg PO TID 10/15/16 10/15/16 History Allergies Allergy/AdvReac Type Severity Reaction Status Date / Time NSAIDS (Non-Steroidal Allergy Unknown Verified 07/20/16 14:13 Anti-Inflamma Physical Exam Vitals: Intake and Output 10/15/16 10/15/16 10/15/16 06:59 14:59 22:59 Intake Total 5.18 Balance 5.18 Intake: Intake, IV Titration 5.18 Amount Propofol 500 mg In Empty 5.18 Bag 1 bag @ Titrate IV . Q0M ONE Rx#:[id number] General appearance currently intubated and sedated. Pupils are 8 mm dilated and sluggishly reactive Neck is supple no JVD is appreciated Lung sounds are coarse no rhonchi or wheezing Heart S1-S2 heard no murmurs. Abdomen no significant tenderness a previous surgical scars noted Lower extremities while skin no significant edema Neuro currently sedated Results CBC & Chem 7: 10/15/16 10:38 10/15/16 10:38 Assessment and Plan Plan: #1 acute metabolic/toxic encephalopathy #2 acute hypoxic respiratory failure secondary to above #3 anion gap metabolic acidosis #4 acute kidney injury with secondary ATN likely due to rhabdomyolysis and hypotension #5 lactic acidosis #6 history of gastric bypass unsure if there is a blind loop #7 polysubstance use. #8 acute hepatitis #9 hepatic encephalopathy #10 acute GI bleed Plan Continue serial CBCs. Patient's repeat labs will be obtained. Intake map greater than 65 triaged the patient to the intensive care unit Consult ICU physician Trend CKs. Patient will be given octreotide as patient does have cirrhosis there is some concern for variceal bleed as well in addition to Protonix. A GI consultation will be obtained. Patient should be and use at least 4-5 bowel movements with hyperammonemia via NG tube Patient will also be started on rifaximin Prognosis is poor this was discussed with the family.
[2016-10-15] MEDS ORDERED: OCTREOTIDE 200 MCG in SODIUM CHLORIDE 0.9% 100 ML IVPB SCH (17:30)
[2016-10-15] MEDS ORDERED: RIFAMPIN 600 MG in SODIUM CHLORIDE 0.9% 100 ML IVPB SCH (17:30)
--- NOTE | 2016-10-15 17:40 | P.CNPUL ---
History of Present Illness Consult date: 10/15/16 Requesting physician: Ventura Sotelo Reason for consult: other (Ventilator/critical care management) Chief complaint: Acute hypoxic respiratory failure History of present illness: This is a 51-year-old female patient with a known history of hypertension, COPD , chronic and ongoing tobacco dependence, previous gastric bypass, polysubstance abuse, alcohol abuse, and has been in and out of rehabilitation in the past. She has been to Narcotics Anonymous an alcoholic anonymous and has made acquaintances through both of these places. Apparently she seeks out 6 and sometimes actually brought directly to her house where she meets and at the back door. She was last seen approximate 4 PM yesterday afternoon by her who said she was arousable, not making a lot of sense but stated she was fine and was just tired. Today he found her unarousable laying on the floor incontinent of urine and stool and EMS was called. They did give her Narcan without much response. She arrived to the emergency room at 10:00 this morning. She was lethargic throughout the morning. Computed tomography scan of the brain revealed no acute intracranial process. She subsequently required intubation mechanical ventilatory support. Her urine drug screen is positive for opiates, oxycodone, barbiturates, amphetamines and benzodiazepines. Stool for occult blood is positive. The NG tube has coffee-ground emesis returned. Hemoglobin is 17.1. Bicarb of 12, BUN 94 creatinine 2.71, lactic acid 5.1. Her AST was 1412, ALT 483, ammonia level 158, CK level 4763. She is seen in consultation in the emergency room. Chest x-ray revealed no acute process. Current vent settings are assist control of 10 tidal volume 500 FiO2 50% and a PEEP of 5. Arterial blood gases on 100% FiO2 were P O2 232, pCO2 25 pH 7.43. She is currently sedated with propofol at 15 mcg/m. She has received 5 L of fluid resuscitation. She has a 0.45 normal saline at 150 MLS per hour. She is on Zosyn and rifampin. She's been initiated on octreotide. She is started on lactulose. Review of Systems ROS unobtainable: due to endotracheal tube Past Medical History Past Medical History: COPD, Hypertension Additional Past Medical History / Comment(s): DJD, chronic back pain History of Any Multi-Drug Resistant Organisms: None Reported Additional Past Surgical History / Comment(s): gallbladder, Gastric bypass, partial hysterectomy Past Psychological History: Anxiety, Depression Smoking Status: Current every day smoker Past Alcohol Use History: None Reported Past Drug Use History: None Reported Medications and Allergies Home Medications Medication Instructions Recorded Confirmed Type Diazepam [Valium] 10 mg PO Q12H PRN 07/20/16 10/15/16 History Gabapentin 800 mg PO TID 07/20/16 10/15/16 History Pnv with Ca,No.72/Iron/FA 1 tab PO DAILY 07/20/16 10/15/16 History [ Plus Tablet] Albuterol Sulfate [Proventil Hfa] 2 puff INHALATION RT-Q6H PRN 10/15/16 History Dextroamphetamine/Amphetamine 20 mg PO QAM 10/15/16 10/15/16 History [Adderall Xr] Metoprolol Tartrate [Lopressor] 100 mg PO BID 10/15/16 10/15/16 History tiZANidine HCL [tiZANidine HCL] 4 mg PO TID 10/15/16 10/15/16 History Allergies Allergy/AdvReac Type Severity Reaction Status Date / Time NSAIDS (Non-Steroidal Allergy Unknown Verified 07/20/16 14:13 Anti-Inflamma Physical Exam Vitals: Vital Signs Temp Pulse Resp BP Pulse Ox 10/15/16 16:08 98.6 F 120 H 10 L 142/63 100 10/15/16 15:53 118 H 10 L 142/63 100 Intake and Output 10/15/16 10/15/16 10/15/16 06:59 14:59 22:59 Intake Total 5.18 Balance 5.18 Intake: Intake, IV Titration 5.18 Amount Propofol 500 mg In Empty 5.18 Bag 1 bag @ Titrate IV . Q0M ONE Rx#:[id number] GENERAL EXAM: Jaundiced. Intubated, sedated HEAD: Normocephalic. EYES: Sluggish reaction of pupils, equal size. NOSE: Clear with pink turbinates. THROAT: No erythema or exudates. NECK: No masses, no JVD. CHEST: No chest wall deformity. LUNGS: Equal air entry with no crackles, wheeze, rhonchi or dullness. CVS: S1 and S2 normal with no audible murmurs, regular rhythm. ABDOMEN: Distended, hepatomegaly. Extremities: There is trace peripheral edema. No clubbing, no cyanosis. Peripheral pulses are intact. Results - Laboratory Findings CBC and BMP: 10/15/16 10:38 10/15/16 10:38 ABG ABG pH 7.43 (7.35-7.45) 10/15/16 15:47 ABG pCO2 25 mmHg (35-45) L 10/15/16 15:47 ABG pO2 232 mmHg (83-108) H 10/15/16 15:47 ABG O2 Saturation 100.0 % (94-97) H 10/15/16 15:47 PT/INR, D-dimer PT 17.2 sec (9.0-12.0) H 10/15/16 14:14 INR 1.8 (<1.1) 10/15/16 14:14 - Diagnostic Findings Chest x-ray: image reviewed Assessment and Plan Plan: Impression: #1 Polysubstance overdose unclear if an intentional or accidental. Urine drug screen positive for opiates, oxycodone, barbiturates, amphetamines, benzodiazepines. #2 Acute hypoxic respiratory failure secondary to above requiring intubation and mechanical ventilatory support. #3 Hepatic encephalopathy secondary to polysubstance abuse and alcohol abuse. #4 Elevated LFTs and ammonia level secondary to above. #5 Lactic acidosis. #6 Rhabdomyolysis. #7 Gastrointestinal bleeding, acute. #8 Acute renal failure and #9 Coagulopathy secondary to acute liver failure. #10 History of polysubstance abuse. #11 History of alcohol abuse. #12 Chronic and ongoing tobacco dependence. Plan: The patient was seen and evaluated by Dr. Whitlock. Her labs chest x-ray and ABGs were reviewed. We'll make adjustments to the ventilator as appropriate. We'll initiate bronchodilators, continue antibiotics. We'll continue with the lactulose for her high ammonia levels. Octreotide and Protonix has been initiated for the acute GI bleed. The patient's overall prognosis is quite poor based on the severity of her illness. We did have discussion with the patient' s and son who are at the bedside. They're aware of her current status. They do wish her to remain a full code at this point. We'll see how the next 24-48 hours goes. We'll repeat her chest x-ray ABGs and labs in the a.m. Continue to monitor her closely in the intensive care unit. We will continue to follow and make further recommendations based on her clinical status. Time with Patient: Greater than 30
[2016-10-15] MEDS ORDERED: OCTREOTIDE 100 MCG/ML INJ IVP ONE (18:15)
[2016-10-15] MEDS ORDERED: OCTREOTIDE 200 MCG in SODIUM CHLORIDE 0.9% 100 ML IV SCH (18:30)
[2016-10-15 18:32] VITALS: BP 104/68; TEMP 100.4
[2016-10-15] MEDS: RIFAXIMIN 550 MG TABLET PO SCH ×2 (18:42→21:55)
[2016-10-15] MEDS: IPRATROPIUM-ALBUTEROL 3 ML NEB INHALATION SCH ×2 (19:29→19:38)
[2016-10-15 19:43] VITALS: PULSE 124
[2016-10-15 20:11] LABS: Glucose,Whole Blood 41 mg/dL (75-99)
[2016-10-15 20:11] LABS: Glucose,Whole Blood 52 mg/dL (75-99)
[2016-10-15] MEDS ORDERED: CISATRACURIUM 2 MG/ML 5 ML VIAL IV ONE (20:20)
[2016-10-15 20:29] LABS: ABG Base Excess -11.9 mmol/L; ABG HCO3 15 mmol/L (21-25); ABG PCO2 41 mmHg (35-45); ABG PH 7.19 (7.35-7.45); ABG PO2 65 mmHg (83-108); ABG TCO2 16 mmol/L (19-24)
[2016-10-15 20:35] LABS: Glucose,Whole Blood 124 mg/dL (75-99)
--- NOTE | 2016-10-15 20:44 | XR ---
EXAMINATION TYPE: XR chest 1V portable DATE OF EXAM: 10/15/2016 8:29 PM COMPARISON: Today HISTORY: Check tube placement TECHNIQUE: Single frontal view of the chest is obtained. FINDINGS: There is a nasogastric tube has tip probably in the gastric fundus. Endotracheal tube appe ars in good position. There is no gross heart failure. There are chest leads. IMPRESSION: Endotracheal tube appears in good position. No heart failure or pulmonary consolidation.
[2016-10-15 20:58] LABS: ABG Base Excess -7.4 mmol/L; ABG HCO3 19 mmol/L (21-25); ABG PCO2 47 mmHg (35-45); ABG PH 7.23 (7.35-7.45); ABG PO2 69 mmHg (83-108); ABG TCO2 20 mmol/L (19-24)
[2016-10-15] MEDS ORDERED: PANTOPRAZOLE 40 MG/10 ML VIAL IV SCH (21:00)
[2016-10-15] MEDS ORDERED: HYDROmorphone 2 MG/ML 1 ML SYRINGE IVP SCH (21:15)
[2016-10-15] MEDS ORDERED: CISATRACURIUM 200 MG in SODIUM CHLORIDE 0.9% 180 ML IV SCH (21:30)
[2016-10-15] MEDS ORDERED: LACTULOSE 20 GM/30 ML CUP PO SCH (22:00)
[2016-10-15] MEDS ORDERED: NALOXONE 0.4 MG/ML 1 ML VIAL IV PRN (22:35)
[2016-10-16] MEDS ORDERED: SODIUM CHLORIDE 0.9% 100 ML BAG ONE (00:30)
[2016-10-16] MEDS ORDERED: HYDROmorphone 2 MG/ML 1 ML SYRINGE ONE (00:30)
[2016-10-16] MEDS ORDERED: MORPHINE SULFATE IV ONE (00:30)
[2016-10-16 05:16] VITALS: RESP 34
[2016-10-16] MEDS: SODIUM CHLORIDE 0.45% 1,000 ML IV SCH (05:22)
--- NOTE | 2016-10-16 07:29 | PCN ---
DATE OF PROCEDURE: OPERATIVE REPORT: Placement of a left brachial arterial line. PREOPERATIVE DIAGNOSIS: Acute respiratory failure, hypotension, and hypoxemia. POSTOPERATIVE DIAGNOSIS: Acute respiratory failure, hypotension, and hypoxemia. ANESTHESIA USED: None deployed. PROCEDURE: Patient was placed in a supine position. The left brachial region was prepared in a sterile fashion and drapes were applied. The left brachial artery was palpated, cannulated, and a guidewire was placed. A Cook's radial catheter was placed over the guidewire, and the guidewire was removed. Line was secured using 3-0 silk sutures. The procedure was well tolerated. No evidence of any immediate complications.
--- NOTE | 2016-10-19 17:55 | P.DS ---
Providers Date of admission: 10/15/16 15:49 Attending physician: Ventura Sotelo MD Primary care physician: Olga Cat [facility] Course: pt was admitted with toxic encephalopathy and hyperacute hepatits. Pt the day of admission. Refer to [facility] for addtional history and initial management Pt was made comfort measures only overnight as, clinically worsened, and after discussion with family.Goals of care were changed over Patient Condition at Discharge: Critical Plan - Discharge Summary Discharge Medication List Diazepam [Valium] 10 mg PO Q12H PRN 07/20/16 [History] Gabapentin 800 mg PO TID 07/20/16 [History] Pnv with Ca,No.72/Iron/FA [ Plus Tablet] 1 tab PO DAILY 07/20/16 [ History] Albuterol Sulfate [Proventil Hfa] 2 puff INHALATION RT-Q6H PRN 10/15/16 [History ] Dextroamphetamine/Amphetamine [Adderall Xr] 20 mg PO QAM 10/15/16 [History] Metoprolol Tartrate [Lopressor] 100 mg PO BID 10/15/16 [History] tiZANidine HCL [tiZANidine HCL] 4 mg PO TID 10/15/16 [History] Follow up Appointment(s)/Referral(s): Olga Cat MD [Primary Care Provider] - 1-2 days Discharge Disposition: - Preliminary Cause of Preliminary Cause of : substance overdose.
== END 2016-10-16 00:54 | disposition expired | DRG 441 ==
LOC: EC 10:16 → 6ICU 15:49
PROVIDERS: ADMIT Internal Medicine; ATTEND Internal Medicine
PROC: 5A1935Z Respiratory Ventilation, Less than 24 Consecutive Hours (ICD-10-PCS; principal; 2016-10-15)
PROC: 0BH17EZ Insertion of Endotracheal Airway into Trachea, Via Natural or Artificial Opening (ICD-10-PCS; 2016-10-15)
PROC: 03HC33Z Insertion of Infusion Device into Left Radial Artery, Percutaneous Approach (ICD-10-PCS; 2016-10-15)
DX: K71.10 Toxic liver disease with hepatic necrosis, without coma (principal); G92 Toxic encephalopathy; J96.01 Acute respiratory failure with hypoxia; N17.0 Acute kidney failure with tubular necrosis; K92.2 Gastrointestinal hemorrhage, unspecified; E87.2 Acidosis; M62.82 Rhabdomyolysis; D68.4 Acquired coagulation factor deficiency; E86.0 Dehydration; F10.10 Alcohol abuse, uncomplicated; F17.200 Nicotine dependence, unspecified, uncomplicated; F32.9 Major depressive disorder, single episode, unspecified; F41.9 Anxiety disorder, unspecified; I10 Essential (primary) hypertension; J44.9 Chronic obstructive pulmonary disease, unspecified; K74.60 Unspecified cirrhosis of liver; T40.604A Poisoning by unspecified narcotics, undetermined, initial encounter; T40.2X4A Poisoning by other opioids, undetermined, initial encounter; T42.3X4A Poisoning by barbiturates, undetermined, initial encounter; T43.624A Poisoning by amphetamines, undetermined, initial encounter; T42.4X4A Poisoning by benzodiazepines, undetermined, initial encounter; M19.90 Unspecified osteoarthritis, unspecified site; G89.29 Other chronic pain; M54.9 Dorsalgia, unspecified; Z51.5 Encounter for palliative care; Z79.899 Other long term (current) drug therapy; Z98.84 Bariatric surgery status; Z88.6 Allergy status to analgesic agent; Y92.009 Unspecified place in unspecified non-institutional (private) residence as the place of occurrence of the external cause
CPT/HCPCS: 31500; 36415; 36600; 51702; 70450; 71010; 80053; 80306; 80320; 81001; 82140; 82150; 82272; 82550; 82553; 82805; 83520; 83605; 83690; 83735; 84484; 85025; 85610; 85730; 86850; 86900; 86901; 87040; 87070; 87077; 87186; 87205; 93005; 94002; 94640; 96361; 96365; 96367; 96375; 96376; 99152; 99291